=== PATIENT | female | born 1970 | race Hispanic/Latino ===

== ENCOUNTER → 2018-01-24 | Outpatient (CLI) | payer BC | LOC: MAMMO 13:49 | PROVIDERS: ATTEND Obstetrics & Gynecology | DX: Z12.31 Encounter for screening mammogram for malignant neoplasm of breast (principal) | CPT/HCPCS: 77067 ==

== ENCOUNTER → 2018-03-11 | Outpatient (CLI) | payer BC ==
--- NOTE | 2018-03-12 08:52 | Diagnostic Imaging Report ---
#[id number] [facility] 03/11/2018 No prior exams were available for comparison. Color flow and real-time ultrasound were performed on the entire right breast with scanning in all four quadrants, retroareolar region and the right axilla. -At 4 o'clock 3 cm from the nipple is a cluster of cyst with conglomerate measurement of 4 x 4 x 6 mm. -At 5 o'clock 2 cm from the nipple is a 5 mm cyst -At 5 o'clock 6 cm from the nipple is an 8 x 4 x 12 mm cyst -At 7 o'clock 5 cm from the nipple is a complex cyst with septation measuring 7 x 5 x 6 mm -At 8 o'clock 6 cm from the nipple is a cluster of cyst with a conglomerate size of 6 x 2 x 7 mm -At 8 o'clock 4 cm from the nipple is a 5 x 3 x 5 mm cyst. -A benign appearing lymph node is noted in the axilla. IMPRESSION: BENIGN There is no sonographic evidence of malignancy. A 1 year screening mammogram is recommended. Dean Wiseman Jr., D.O. cw/:03/11/2018 16:22:47 [employer] Attendant: Ric Church [facility], [facility] letter sent: Normal Exam Ultrasound BI-RADS: 2 Benign
--- NOTE | 2018-03-12 08:52 | Diagnostic Imaging Report ---
#[id number] - [facility] ULTRASOUND OF THE LEFT BREAST : 03/11/2018 Comparison is made to exam dated: 01/24/2018 mammogram - [facility]. Color flow and real-time ultrasound were performed on the entire left breast with scanning in all four quadrants, retroareolar region and the left axilla. -At 9 o'clock 2 cm from the nipple there is a 3 x 2 x 3 mm cyst. -A benign appearing lymph node in the left axilla is present. IMPRESSION: BENIGN There is no sonographic evidence of malignancy. A 1 year screening mammogram is recommended. Dean Wiseman Jr., D.O. cw/:03/11/2018 16:25:29 Scheduling Manager: Ric Church RDMS, [facility] letter sent: Normal Exam Ultrasound BI-RADS: 2 Benign
== END ==
LOC: US 12:32
PROVIDERS: ATTEND Obstetrics & Gynecology
DX: R92.2 Inconclusive mammogram (principal)